=== PATIENT | female | born 1985 | race Caucasian/White ===

== ENCOUNTER 2023-10-03 10:06 | Outpatient (REF) | payer MEDICAID, SELFPAY ==
[2023-10-03 11:38] LABS: MANUAL DIFF FLAG NO
[2023-10-03 11:50] LABS: Basophils Absolute Auto 0.1 X10*3/uL (0.0-0.2); Eosinophils Absolute Auto 0.4 X10*3/uL (0.0-0.4); Eosinophils Percent Auto 6.4 % (0-4); Hematocrit 38.4 % (37.0-47.0); Hemoglobin 13.2 g/dl (12.0-16.0); Imm Gran Abs Auto 0.02 X10*3/uL (0.00-0.03); Imm Gran Pct Auto 0.3 % (0.0-0.4); Lymphocytes Absolute Auto 1.9 X10*3/uL (1.2-4.9); Lymphocytes Percent Auto 31.3 % (20-40); Mean Corpuscular HGB Conc 34.4 g/dl (31.0-35.0); Mean Corpuscular Hemoglobin 32.3 pg (27.0-33.0); Mean Corpuscular Volume 93.9 fL (80.0-98.0); Mean Platelet Volume 9.7 fL (9.4-12.3); Monocytes Absolute Auto 0.5 X10*3/uL (0.1-1.2); Monocytes Percent Auto 7.7 % (2-11); Neutrophils Absolute Auto 3.2 x10*3/uL (2.0-8.3); Neutrophils Percent Auto 53.3 % (45-73); Platelet Count 227 X10*3/uL (160-400); Red Blood Count 4.09 X10*6/uL (4.20-5.50); Red Cell Distribution Width 12.3 % (11.0-16.0); White Blood Count 6.1 X10*3/uL (4.8-10.8)
[2023-10-03 12:59] LABS: Alanine Aminotransferase 10 U/L (0-31); Albumin Level 3.8 g/dL (3.5-5.0); Alkaline Phosphatase 48 U/L (39-117); Anion Gap 10 (12-20); Aspartate Amino Transferase 10 U/L (5-31); Bilirubin Total 0.5 mg/dL (0.0-1.0); Blood Urea Nitrogen 15 mg/dL (9-16); Calcium 8.9 mg/dL (8.4-10.2); Carbon Dioxide 23 mmol/L (22-29); Chloride 108 mmol/L (96-108); Estimated Glomerular Filt Rate > 60; Glucose Random 89 mg/dL (60-115); Potassium 4.2 mmol/L (3.3-5.1); Sodium 137 mmol/L (135-145); Total Protein 6.4 g/dL (6.5-8.0)
[2023-10-04 03:58] LABS: HBS Num1 98.58 mIU/mL (0-7.99); HBc Num1 0.12 S/CO (0.00-0.79); HBsAGNum1 0.27 S/CO (0.00-0.99); HIV AB/AG Nonreactive (Nonreactive); HIV Num 1 0.04 S/CO (0.00-0.99); Hepatitis A Antibody IgM 0.21 Index (0-0.79); Hepatitis B Core Antibody Nonreactive (Nonreactive); Hepatitis B Surface Antigen Negative (Negative); ~HepC Num1 0.09 S/CO (0.00-0.79); ~Hepatitis A Antibody IgM Nonreactive (Nonreactive); ~Hepatitis B Surface Antibody REACTIVE (Nonreactive); ~Hepatitis C Antibody Nonreactive (Nonreactive)
[2023-10-07 13:27] LABS: VITAMIN D (1,25 OH) D3 31 pg/mL; Vit D (1,25-Dihydroxy) Total 31 pg/mL (18-72); Vitamin D (1,25 OH) D2 <8 pg/mL
== END 2023-10-03 10:07 | disposition home or self-care (01) ==
LOC: HO.LAB 10:06
PROVIDERS: Visit Provider Nurse Practitioner Family
DX: F14.10 Cocaine abuse, uncomplicated (principal); F33.0 Major depressive disorder, recurrent, mild; Z76.89 Persons encountering health services in other specified circumstances
CPT/HCPCS: 36415; 80053; 82652; 85025; 86704; 86706; 86709; 86803; 87340; 87389; 99212

== ENCOUNTER 2023-10-03 10:06 | Outpatient (AMB) | payer MEDICAID, SELFPAY ==
[2023-10-03 10:35] VITALS: BP 140/80; PULSE 80; RESP 19
--- NOTE | 2023-10-03 10:35 | A.OFFVISCC_ITS ---
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 Lives in [place] Identifies family and partner good supports She has been using cocaine recreationally for 20+ years She uses it intranasally, has tried smoking it before but does not like to consume it that way Recently over the past 2 weeks has tried shooting it (uses clean needles obtained from pharmacy) Cocaine use is generally isolated to the weekends, and when she does use it is a couple of grams with her boyfriend Does not feel like she craves the cocaine during the week, but states when she drinks alcohol, that usually will make her want cocaine also to keep the democrat going She recently tried injecting cocaine for the first time and had an overdose requiring narcan and emergency dept visit She reports this was a scary experience for her- becoming tearful at this time, states she has no desire to use heroin again after that experience Drinks alcohol a few days a week , on a democrat night will drink 6-10 mixed drinks, 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 for her on a regular basis, although she denies daily alcohol use, denies experiencing any withdrawal symptoms (tremor, anxiety, seizure activity) Smoke 1/2PPD cigarettes x 20 years Used xanax and adderall for 5-6 years that she purchased from friends with scripts No hx of psych hospitalizations Thinks she has undiagnosed ADHD Has no providers- interested in [facility] referral Has no chronic medical conditions, no home meds Her treatment goal is to stop using cocaine, and drink only socially Review of Systems Const Reports as per HPI Physical Exam Vital Signs: Last Vital Signs Pulse 80 10/03/23 10:35 Resp 19 10/03/23 10:35 BP 140/80 H 10/03/23 10:35 Const General: cooperative and no acute distress Resp Effort & Inspection: normal respiratory effort Psych Appearance: grossly normal Mental Status: mental status grossly normal Speech and movement: Normal speech and movement present Affect: normal affect Attitude: cooperative Thought process: Normal thought process present Quality Reporting (2019) Depression/Bipolar (159/160/161/177) PHQ-9: Total score: 10 Assessment & Plan Assessment & Plan (1) Establishing care with new doctor, encounter for: Code(s): Z76.89 - Persons encountering health services in other specified circumstances Category: Medical Plan: -CMP, CBC, Vit D, Hep ABC, HIV labs ordered to establish baseline for treatment (2) Cocaine use disorder: Code(s): F14.10 - Cocaine abuse, uncomplicated Category: Medical Plan: -Patient provided with narcan and fentanyl test strips -Harm reduction discussed -Recovery supports discussed, 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 Med education provided. -She is not interested in [facility] at this time -Follow up 2 weeks (3) Major depressive disorder: Code(s): F32.9 - Major depressive disorder, single episode, unspecified Category: Medical Qualifiers: Major depression recurrence: recurrent Active/Remission status: currently active Major depression episode severity: mild Qualified Code(s): F33.0 - Major depressive disorder, recurrent, mild Plan: -Start buproprion low dose, med education provided. Counseled her to stop med immediately and call 911 should she experience suicidal thoughts -Referral to [facility] placed Orders: Orders Hepatitis A,B,C Profile 10/03/23 Z76.89 - Persons encountering health services in other specified circumstances Complete Blood Count Auto Diff 10/03/23 Z76.89 - Persons encountering health services in other specified circumstances Comprehensive Met. Panel 10/03/23 Z76.89 - Persons encountering health services in other specified circumstances Vitamin D 1,25 dihydroxy 10/03/23 Z76.89 - Persons encountering health services in other specified circumstances HIV Ab/Ag 10/03/23 Referrals Counseling Referral F14.10 - Cocaine abuse, uncomplicated, F33.0 - Major depressive disorder, recurrent, mild Medications: New bupropion HCl administer 6 hours apart 75 mg PO DAILY 30 tabs 0RF topiramate 25 mg PO BID 30 caps 0RF PHQ-9 Over the last 2 weeks, how often have you been bothered by any of the following problems? 1. Little interest or pleasure in doing things: more than half the days 2. Feeling down, depressed, or hopeless: more than half the days 3. Trouble falling or staying asleep, or sleeping too much: several days 4. Feeling tired or having little energy: several days 5. Poor appetite or overeating: not at all 6. Feeling bad about yourself - or that you are a failure or have let yourself or your family down: more than half the days 7. Trouble concentrating on things, such as reading the newspaper or watching television: more than half the days 8. Moving or speaking so slowly that other people could have noticed. Or the opposite - being so fidgety or restless that you have been moving around a lot more than usual: not at all 9. Thoughts that you would be better off or of hurting yourself in some way: not at all Total score: 10 Depression Screening Interpretation: Positive Depression Screening Done: Yes 79681 - PHQ-9 Billing: Yes Source: Developed by Drs. Valdo James, Anh Hurtado, Juan Jose Barr and colleagues, with an educational mitch from [employer]
== END 2023-10-03 11:19 | disposition home or self-care (01) ==
PROVIDERS: Visit Provider Nurse Practitioner Family
DX: F14.10 Cocaine abuse, uncomplicated (principal); Z76.89 Persons encountering health services in other specified circumstances; F33.0 Major depressive disorder, recurrent, mild
CPT/HCPCS: 99214

== ENCOUNTER 2023-10-08 09:04 | Outpatient (AMB) | payer MEDICAID, SELFPAY ==
[2023-10-08 09:07] VITALS: BP 140/96; PULSE 91; O2SAT 100
--- NOTE | 2023-10-08 09:07 | MHC.AM.SUB ---
Vital Signs 10/08/23 09:07 BP 140/96 H Blood Pressure Location Lt brachial Position Sitting Pulse 91 Pulse Source Pulse Oximeter Pulse Oximetry (%) 100 Oxygen Delivery Method Room Air Intake Visit Reasons: MAT follow up Allergies No Known Allergies Allergy (Verified 10/03/23 10:49) HPI HPI MAT follow up: Details: Patient presents for MAT visit She reports she started the buproprion and topamax 3 days ago SHe has not experienced any untoward side effects thus far States she feels good , reports only substance use in past week was a bump of cocaine on Friday after day drinking with some friends who were in town for the weekend She reports she was hungover the next day and did not feel good about that She has a music festival over she is feeling concerned about due to the prolific substance use that she states occurs at these events. Review of Systems Const Reports as per HPI Physical Exam Vital Signs: Last Vital Signs Pulse 91 10/08/23 09:07 BP 140/96 H 10/08/23 09:07 Pulse Ox 100 10/08/23 09:07 Oxygen Delivery Method Room Air 10/08/23 09:07 Const General: cooperative and no acute distress Resp Effort & Inspection: normal respiratory effort and able to speak in complete sentences Psych Appearance: grossly normal Mental Status: mental status grossly normal Speech and movement: Normal speech and movement present Affect: normal affect Attitude: cooperative Thought process: Normal thought process present Assessment & Plan Assessment & Plan (1) Cocaine use disorder: Code(s): F14.10 - Cocaine abuse, uncomplicated Category: Medical Plan: -Tolerating topamax, continue taking as prescribed -Continue Buproprion -Discussed harm reduction strategies -Discussed with her to put some thought into what the festival would look like to her if she had a few alcoholic beverages rather than using illicit substances, plan to continue and build upon this discussion at next visit when she has had time to process -Follow up 2 weeks, instructed she can call and ask to be seen earlier
== END 2023-10-08 09:32 | disposition home or self-care (01) ==
PROVIDERS: Visit Provider Nurse Practitioner Family
DX: F14.10 Cocaine abuse, uncomplicated (principal)
CPT/HCPCS: 99213

== ENCOUNTER → 2023-10-08 09:04 | Outpatient (BNVA) | payer MEDICAID, SELFPAY | PROVIDERS: Visit Provider Nurse Practitioner Family | DX: F14.10 Cocaine abuse, uncomplicated (principal) | CPT/HCPCS: 99212 ==

== ENCOUNTER 2023-10-22 09:00 | Outpatient (AMB) | payer MEDICAID, SELFPAY ==
--- NOTE | 2023-10-22 08:59 | A.OFFVISCC_ITS ---
Vital Signs 10/22/23 09:00 BP 132/84 Blood Pressure Location Lt brachial Position Sitting Pulse 85 Pulse Source Pulse Oximeter Pulse Oximetry (%) 99 Oxygen Delivery Method Room Air Intake Visit Reasons: MAT follow up Allergies No Known Allergies Allergy (Verified 10/03/23 10:49) HPI HPI MAT follow up: Details: Patient presents for MAT visit She reports within the past 2 weeks she has gone on two trips, one to [place] for a weekend and one to [place]. She reports when she went to [place] she did not use any substances other than gummies, and had alcohol When she returned, her boyfriend disclosed to her he had relapsed. She states she was able to set a boundary for him and told him he cannot continue to use if he wishes to remain in a relationship with her for her own recovery. She has a music festival she is attending this weekend, feels as though it will be a test of her will, states she has a friend that she is buddying up with that does not wish to participate in substance use either. She has been taking the topamax once daily She has been taking the buproprion daily, felt it could be a little more effective than it is at current dose HPI Comments Details: Patient presents for MAT visit Review of Systems Const Reports as per HPI Physical Exam Vital Signs: Last Vital Signs Pulse 85 10/22/23 09:00 BP 132/84 10/22/23 09:00 Pulse Ox 99 10/22/23 09:00 Oxygen Delivery Method Room Air 10/22/23 09:00 Const General: cooperative and no acute distress Resp Effort & Inspection: normal respiratory effort and able to speak in complete sentences Psych Appearance: grossly normal Mental Status: mental status grossly normal Speech and movement: Normal speech and movement present Affect: normal affect Attitude: cooperative Thought process: Normal thought process present Assessment & Plan Assessment & Plan (1) Cocaine use disorder: Code(s): F14.10 - Cocaine abuse, uncomplicated Category: Medical Plan: -Discussed relapse prevention and recovery support -Provided with Narcan -Discussed increasing the daily topamax to BID prior to going to the music festival -Follow up 1 week (2) Major depressive disorder: Code(s): F32.9 - Major depressive disorder, single episode, unspecified Category: Medical Qualifiers: Major depression recurrence: recurrent Active/Remission status: currently active Major depression episode severity: mild Qualified Code(s): F33.0 - Major depressive disorder, recurrent, mild Plan: -Discussed with her increase buproprion to 150mg from 75mg -Script sent to pharmacy with new dose Medications: New bupropion HCl SR 150 mg PO DAILY 30 tabs 0RF Refilled topiramate 25 mg PO BID 60 caps 0RF Discontinued bupropion HCl administer 6 hours apart Discontinued Reason: Patient Completed Course 75 mg PO DAILY 30 tabs 0RF
[2023-10-22 09:00] VITALS: BP 132/84; PULSE 85; O2SAT 99
== END 2023-10-22 09:29 | disposition home or self-care (01) ==
PROVIDERS: Visit Provider Nurse Practitioner Family
DX: F14.10 Cocaine abuse, uncomplicated (principal); F33.0 Major depressive disorder, recurrent, mild
CPT/HCPCS: 99213

== ENCOUNTER → 2023-10-22 09:00 | Outpatient (BNVA) | payer MEDICAID, SELFPAY | PROVIDERS: Visit Provider Nurse Practitioner Family | DX: F14.10 Cocaine abuse, uncomplicated (principal); F33.0 Major depressive disorder, recurrent, mild; Z79.899 Other long term (current) drug therapy; Z51.81 Encounter for therapeutic drug level monitoring | CPT/HCPCS: 99212 ==

== ENCOUNTER 2024-02-04 15:05 | Outpatient (AMB) | payer MEDICAID, SELFPAY ==
--- NOTE | 2024-02-04 15:15 | MHC.AM.SUB ---
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 [employer] Has been taking wellbutrin 150mg daily Review of Systems Const Reports as per HPI Psych Reports anxiety Physical Exam Const General: cooperative, healthy appearing and anxious Nutritional Appearance: average body habitus Psych Attitude: cooperative Insight: Fair insight present (Psych) Judgement: Fair judgement present (Psych) Assessment & Plan Assessment & Plan (1) Cocaine use disorder: Code(s): F14.10 - Cocaine abuse, uncomplicated Category: Medical Plan: risk reduction discussion follow up 6 weeks medicaitons refilled Medications: Discontinued topiramate Discontinued Reason: Patient no longer taking 25 mg PO BID 60 caps 0RF
== END 2024-02-04 16:07 | disposition home or self-care (01) ==
PROVIDERS: Visit Provider Nurse Practitioner Psychiatric/Mental Health
DX: F14.10 Cocaine abuse, uncomplicated (principal)
CPT/HCPCS: 99214

== ENCOUNTER → 2024-02-04 15:05 | Outpatient (BNVA) | payer MEDICAID, SELFPAY | PROVIDERS: Visit Provider Nurse Practitioner Psychiatric/Mental Health | DX: F14.10 Cocaine abuse, uncomplicated (principal) | CPT/HCPCS: 99212 ==

== ENCOUNTER 2024-04-06 08:50 | Outpatient (REF) | payer MEDICAID, SELFPAY ==
[2024-04-06 11:20] LABS: Amphetamine Screen Urine Not Detected (Not Detect); Barbiturates, Urine Not Detected (Not Detect); Benzodiazepines Screen Urine Not Detected (Not Detect); Buprenorphine Scr Not Detected (Not Detect); Cannabinoid Screen Urine Not Detected (Not Detect); Cocaine Screen Urine Not Detected (Not Detect); Fentanyl, urine Not Detected (Not Detect); Methadone Screen, Urine Not Detected (Not Detect); Opiate Screen Urine Not Detected (Not Detect); Oxycodone Screen Urine Not Detected (Not Detect); Phencyclidine Screen Urine Not Detected (Not Detect)
== END 2024-04-06 08:51 | disposition home or self-care (01) ==
LOC: HO.LAB 08:50
PROVIDERS: Visit Provider Nurse Practitioner Psychiatric/Mental Health
DX: Z79.899 Other long term (current) drug therapy (principal)
CPT/HCPCS: 80307